=== PATIENT | female | born 1980 | race Hispanic/Latino ===

== ENCOUNTER 2017-12-19 09:34 | Outpatient (CLI) | payer MEDICAID ==
--- NOTE | 2017-12-19 12:04 | Ultrasound Report ---
ULTRASOUND PELVIC COMPLETE ULTRASOUND TRANSVAGINAL HISTORY: Ovarian cyst. COMPARISON: 08/25/17. TECHNIQUE: Transabdominal and transvaginal ultrasound with color doppler interrogation. FINDINGS: Uterus: The uterus is anteverted. The uterus measures 10.5 x 4.5 x 5.7 cm. No large uterine fibroids. Nabothian cysts in the cervix are unchanged. Endometrium: 9.7 mm. No fluid collection or mass. Right ovary: 3.1 x 2.7 x 2.7 cm. A 3.1 cm cyst in the right ovary has decreased from 4.5 cm. Left ovary: 5.5 x 3.7 x 5.6 cm. A 4.4 cm cyst in the left ovary has increased from 3.2 cm. No pelvic fluid or mass is identified. Normal color doppler interrogation. IMPRESSION: Bilateral ovarian cysts as described above. Nabothian cysts in the cervix.
--- NOTE | 2017-12-19 15:26 | Ultrasound Report ---
BILATERAL BREAST ULTRASOUND: 12/19/17 09:34:00 CLINICAL: Chronic bilateral clear nipple discharge. Negative bilateral mammogram and bilateral breast ultrasound at [facility] 07/14/17. I have a report of no images. COMPARISON: None FINDINGS: Ultrasound of both breasts(including all four quadrants and the retroareolar area of each breast) was performed. No solid mass or shadowing. No ductal dilatation. No intraductal mass lesion identified. A smooth oval anechoic left benign cyst at 2 o'clock 8 cm from the nipple measures 8 x 3 x 6 mm and a complex cystic lesion at 6 o'clock 3 cm from the nipple measures 8 x 4 x 3 mm. A complex cyst of the right breast at 2 o'clock 7 cm from the nipple measures 1.8 x 0.5 x 1.0 cm and contains at least one thin septation. A benign cyst at 7 o'clock measures 7 x 2 x 7 mm. IMPRESSION: Bilateral benign cysts and no suspicious finding. Consider bilateral breast MRI without and with contrast for further workup of bilateral nipple discharge. BI-RADS 2 - - Benign
== END 2017-12-19 09:35 | disposition home or self-care (01) ==
LOC: US 09:34
PROVIDERS: ATTEND Obstetrics & Gynecology
DX: N60.02 Solitary cyst of left breast (principal); N60.01 Solitary cyst of right breast; N83.201 Unspecified ovarian cyst, right side; N83.202 Unspecified ovarian cyst, left side; N88.8 Other specified noninflammatory disorders of cervix uteri
CPT/HCPCS: 76830; 76856

== ENCOUNTER 2018-04-19 17:29 | Emergency (ER) | payer MEDICAID, OTHER ==
[2018-04-19] MEDS ORDERED: NACL 0.9% 1000 ML 1,000 ML IV ONE (17:40)
[2018-04-19 18:45] LABS: Basophils % (Auto) 0.4 % (0.0-1.8); Eosinophils # (Auto) 0.1 K/mm3 (0.0-0.4); Eosinophils % (Auto) 0.9 % (0.0-4.3); Hematocrit 42.3 % (30.3-42.9); Hemoglobin 14.3 gm/dl (10.1-14.3); Lymphocytes # (Auto) 1.4 K/mm3 (1.2-5.4); Lymphocytes % (Auto) 20.5 % (13.4-35.0); Mean Corpuscular HGB Conc 34 % (30-34); Mean Corpuscular Hemoglobin 29 pg (28-32); Mean Corpuscular Volume 86 fl (79-97); Monocytes # (Auto) 0.6 K/mm3 (0.0-0.8); Monocytes % (Auto) 8.8 % (0.0-7.3); Platelet Count 237 K/mm3 (140-440); Red Blood Count 4.95 M/mm3 (3.65-5.03)
[2018-04-19 18:59] LABS: Alanine Aminotransferase 31 units/L (7-56); Albumin 4.5 g/dL (3.9-5); BUN/Creatinine Ratio 15; Blood Urea Nitrogen 9 mg/dL (7-17); Calcium 9.2 mg/dL (8.4-10.2); Hemolysis Index 9; Lipase 20 units/L (13-60)
--- NOTE | 2018-04-19 20:57 | Emergency Department Report ---
HPI - General Chief Complaint: Nausea/Vomiting/Diarrhea Time Seen by Provider: 04/19/18 19:57 - HPI HPI: 38-year-old female presents to the emergency department, sent in by her PCP Dr. Omega Doyle, for a 5 day history of copious diarrhea. It is now associated with some generalized abdominal pain that she says is currently 8 out of 10 in intensity. She denies any fever, nausea, vomiting. She's been taking Imodium and Pepto-Bismol without any relief. She has a history of a previous brain tumor and hypertension. No recent travel or sick contacts at home. ED Past Medical Hx - Past Medical History Hx Hypertension: Yes Additional medical history: brain tumor. anxiety. depression - Surgical History Hx Appendectomy: Yes Additional Surgical History: shunt placement and removal. x 2. tonsillectomy - Social History Smoking Status: Never Smoker Substance Use Type: None - Medications Home Medications: Home Medications Medication Instructions Recorded Confirmed Last Taken Type ALPRAZolam [Xanax TAB] 1 mg PO TID PRN 06/09/15 06/09/15 06/09/15 History Carisoprodol [Soma] 350 mg PO BID 06/09/15 06/09/15 06/09/15 History Hydrochlorothiazide [HCTZ] 25 mg PO BID 06/09/15 06/09/15 06/09/15 History Ondansetron [Zofran ODT TAB] 4 mg PO Q8HR #15 tab.rapdis 06/09/15 Unknown Rx Promethazine [Phenergan TAB] 25 mg PO Q6HR PRN 06/09/15 06/09/15 06/09/15 History oxyCODONE [Roxicodone TAB] 10 mg PO TID PRN 06/09/15 06/09/15 06/09/15 History Ciprofloxacin HCl [Cipro] 500 mg PO BID #14 tablet 04/20/18 Unknown Rx metroNIDAZOLE [Flagyl] 500 mg PO Q8HR #24 tablet 04/20/18 Unknown Rx ED Review of Systems ROS: Stated complaint: NVD Other details as noted in HPI Comment: All other systems reviewed and negative Constitutional: denies: chills, fever Eyes: denies: eye pain, eye discharge, vision change ENT: denies: ear pain, throat pain Respiratory: denies: cough, shortness of breath, wheezing Cardiovascular: denies: chest pain, palpitations Gastrointestinal: abdominal pain, diarrhea Genitourinary: denies: urgency, dysuria, discharge Musculoskeletal: denies: back pain, joint swelling, arthralgia Skin: denies: rash, lesions Neurological: denies: headache, weakness, paresthesias Physical Exam - Physical Exam Vital Signs: Vital Signs 04/19/18 04/19/18 17:37 20:34 Temperature 97.4 F L 98.3 F Pulse Rate 81 74 Respiratory 18 Rate Blood Pressure 141/78 Blood Pressure 117/70 [Left] O2 Sat by Pulse 99 99 Oximetry Physical Exam: GENERAL: The patient is well-developed well-nourished. HENT: Normocephalic. Atraumatic. Patient has moist mucous membranes. EYES: Extraocular motions are intact. Pupils equal reactive to light bilaterally. NECK: Supple. Trachea is midline. CHEST/LUNGS: Clear to auscultation. There is no respiratory distress noted. HEART/CARDIOVASCULAR: Regular. There is no tachycardia. There is no murmur. ABDOMEN: Abdomen is soft. There is some generalized tenderness to palpation of the abdomen. No guarding. Patient has slightly hyperactive bowel sounds. SKIN: There is no rash. There is no edema. There is no diaphoresis. NEURO: The patient is awake, alert, and oriented. The patient is cooperative. The patient has no focal neurologic deficits. The patient has normal speech and gait. MUSCULOSKELETAL: There is no tenderness or deformity. There is no limitation range of motion. There is no evidence of acute injury. ED Course Vital Signs 04/19/18 04/19/18 17:37 20:34 Temperature 97.4 F L 98.3 F Pulse Rate 81 74 Respiratory 18 Rate Blood Pressure 141/78 Blood Pressure 117/70 [Left] O2 Sat by Pulse 99 99 Oximetry ED Medical Decision Making - Lab Data Result diagrams: 04/19/18 18:32 04/19/18 18:32 - Radiology Data Radiology results: report reviewed EXAM: CT ABDOMEN PELVIS WO CON HISTORY: Abd pain, diarrhea COMPARISON: None available. TECHNIQUE: Contiguous axial images were obtained. Additional sagittal and coronal reformatted images were obtained. FINDINGS: Lung bases are clear. No calcified gallstones. Liver measures 22 centimeters. Spleen measures 15 centimeters. Mild fatty infiltration of the liver. Pancreas and adrenal glands are grossly unremarkable. No nephrolithiasis or hydronephrosis. Aorta and IVC normal in caliber. No distal ureteral or urinary bladder calculi. Uterus and left ovary grossly unremarkable. Simple appearing right ovarian cystic structure measuring 2.3 x 2.7 centimeters likely physiologic given the patient's age. No free fluid or lymphadenopathy in the pelvic cavity. Prior appendectomy. There few reactive lymph nodes adjacent to the cecum and ascending colon. Wall thickening of the rectosigmoid colon concerning for segmental colitis. Mild adjacent fat stranding. Remaining bowel loops normal in caliber. No bowel obstruction. Mild degenerative changes of the lumbar spine. Bilateral pars defects at the L5 level. Bony pelvis is grossly intact.. IMPRESSION: Findings concerning for mild colitis involving the rectosigmoid colon. Remaining bowel loops normal in caliber. Prior appendectomy. Moderate enlargement of the spleen. Mild fatty infiltration of the liver. Transcribed By: VALERIO Dictated By: MADDY CORDOVA MD Electronically Authenticated By: MADDY CORDOVA MD Signed Date/Time: 04/20/18 0036 - Medical Decision Making Patient presents with a five-day history of diarrhea and some abdominal discomfort. Vital signs stable throughout her ED course including being afebrile. The labs were unremarkable including no significant leukocytosis, normal belly labs. Urinalysis showed trace ketones and there might be some level of dehydration. She was given IV fluid resuscitation, a dose of Zofran for some nausea. A stool culture and C. difficile assay have been sent. A white blood cell test of the stool came back negative. Patient was sent in by the PCP for evaluation that would include checking for C. difficile. This test would not be back for 2 or [address] scan of the abdomen pelvis was done that shows some signs of rectosigmoid colitis and fatty infiltration of the liver but otherwise no significant or acute process. Patient says she is feeling improved and asking for discharge home. She will be treated with Cipro and Flagyl, which would cover her for C. difficile if it was positive. She will return to the emergency Department with any worsening of her symptoms or any acute distress. Otherwise she has been encouraged to follow up with her PCP and was given a referral for gastroenterology. She understands and agrees to the plan. - Differential Diagnosis colitis, diverticulitis, gastroenteritis, food poisoning, C. difficile Critical Care Time: No Critical care attestation.: If time is entered above; I have spent that time in minutes in the direct care of this critically ill patient, excluding procedure time. ED Disposition Clinical Impression: Dehydration Diarrhea Qualifiers: Diarrhea type: unspecified type Qualified Code(s): R19.7 - Diarrhea, unspecified Abdominal pain Qualifiers: Abdominal location: generalized Qualified Code(s): R10.84 - Generalized abdominal pain Disposition: TO HOME OR SELFCARE Is pt being admited?: No Condition: Stable Instructions: Acute Diarrhea (ED), Abdominal Pain (ED) Additional Instructions: Increase your oral rehydration. Follow up with your primary care physician in the next few days. I have given her a referral for a local tip printer, Dr. Nelson, to follow up regarding your abdominal pain and diarrhea. Take the antibiotics as prescribed. One of the antibiotics, Flagyl/metronidazole, has a profound and terrible reaction if mixed with alcohol of any quantity and will cause you to have severe vomiting and discomfort. Return to the emergency Department with any worsening of your symptoms or with any acute distress. Prescriptions: Ciprofloxacin HCl [Cipro] 500 mg PO BID #14 tablet metroNIDAZOLE [Flagyl] 500 mg PO Q8HR #24 tablet Referrals: OMEGA DOYLE MD [Staff Physician] - 3-5 Days MISSY NELSON MD [Staff Physician] - 3-5 Days Time of Disposition:
[2018-04-19 21:11] LABS: HCG Qualitative,Urine Negative (Negative)
[2018-04-19 21:13] LABS: Amorphous Crystals,Urine 3+; Bilirubin,Urine NEG (Negative); Blood,Urine NEG (Negative); Color,Urine Yellow (Yellow); Mucus,Urine 3+ /HPF; Protein,Urine <15 mg/dL mg/dL (Negative); Urobilinogen,Urine < 2.0 mg/dL (<2.0); WBC,Urine < 1.0 /HPF (0.0-6.0)
[2018-04-19] MEDS ORDERED: NACL 0.9% 1000 ML 1,000 ML ONE (22:21)
[2018-04-19] MEDS ORDERED: ZOFRAN ONE (22:39)
[2018-04-19] MEDS ORDERED: ZOFRAN IV ONE (22:40)
--- NOTE | 2018-04-20 00:41 | Cat Scan Report ---
FINAL REPORT EXAM: CT ABDOMEN PELVIS WO CON HISTORY: Abd pain, diarrhea COMPARISON: None available. TECHNIQUE: Contiguous axial images were obtained. Additional sagittal and coronal reformatted images were obtained. FINDINGS: Lung bases are clear. No calcified gallstones. Liver measures 22 centimeters. Spleen measures 15 centimeters. Mild fatty infiltration of the liver. Pancreas and adrenal glands are grossly unremarkable. No nephrolithiasis or hydronephrosis. Aorta and IVC normal in caliber. No distal ureteral or urinary bladder calculi. Uterus and left ovary grossly unremarkable. Simple appearing right ovarian cystic structure measuring 2.3 x 2.7 centimeters likely physiologic given the patient's age. No free fluid or lymphadenopathy in the pelvic cavity. Prior appendectomy. There few reactive lymph nodes adjacent to the cecum and ascending colon. Wall thickening of the rectosigmoid colon concerning for segmental colitis. Mild adjacent fat stranding. Remaining bowel loops normal in caliber. No bowel obstruction. Mild degenerative changes of the lumbar spine. Bilateral pars defects at the L5 level. Bony pelvis is grossly intact.. IMPRESSION: Findings concerning for mild colitis involving the rectosigmoid colon. Remaining bowel loops normal in caliber. Prior appendectomy. Moderate enlargement of the spleen. Mild fatty infiltration of the liver.
[2018-04-20] MEDS ORDERED: LEVAQUIN 750MG/150ML 750 MG/150 ML BAG IV ONE (00:58)
[2018-04-20] MEDS ORDERED: FLAGYL PO ONE (00:58)
[2018-04-20] MEDS ORDERED: LEVAQUIN PO ONE (01:18)
[2018-04-20 02:01] VITALS: BP 115/67
== END 2018-04-20 01:45 | disposition home or self-care (01) ==
LOC: ED 17:29
DX: R10.84 Generalized abdominal pain (principal); E86.0 Dehydration; R19.7 Diarrhea, unspecified; I10 Essential (primary) hypertension
CPT/HCPCS: 36415; 74176; 80053; 81001; 81025; 83690; 85007; 85025; 87045; 87324; 96361; 96374; 99284; J2405; J7030

== ENCOUNTER 2018-11-13 08:08 | Outpatient (CLI) | payer MEDICAID ==
--- NOTE | 2018-11-13 09:21 | Ultrasound Report ---
Bilateral breast sonogram with attention to subareolar area right and left breast. Findings: There is ill-defined dilated duct with focal area of echogenicity suggestive of intraductal polyp at subareolar area left breast. There is dilated duct with tiny suspected intraductal polyp right breast subareolar area. Benign cyst left breast 9:00 position 4 cm from nipple. Impression: Dilated duct with intraluminal suspected mass subareolar area and right and left breast. Recommend ductogram for further evaluation. BI-RADS CATEGORY: 4 = Suspicious ACR BI-RADS MAMMOGRAPHIC CODES: 0 = Needs additional imaging evaluation; 1 = Negative; 2 = Benign; 3 = Probably benign; 4 = Suspicious; 5 = Malignant; 6 = Known biopsy-proven malignancy COMMENT: 1. Dense breast tissue, i.e., adenosis, fibrocystic changes, etc., may obscure an underlying neoplasm. 2. Approximately 10% of cancers are not detected with mammography. 3. A negative mammography report should not delay biopsy if a clinically suspicious mass is present.
== END 2018-11-13 08:09 | disposition home or self-care (01) ==
LOC: SPVWC 08:08
PROVIDERS: ATTEND Surgery
DX: N60.32 Fibrosclerosis of left breast (principal); N60.31 Fibrosclerosis of right breast; I10 Essential (primary) hypertension

== ENCOUNTER 2019-03-18 14:10 | Emergency (ER) | payer MEDICAID ==
--- NOTE | 2019-03-18 14:23 | Emergency Department Report ---
Blank Doc - Documentation Documentation: This is a 39-year-old female that presents wit right thumb laceration that occ urred last night around 7 PM. This initial assessment/diagnostic orders/clinical plan/treatment(s) is/are subject to change based on patient's health status, clinical progression and re- assessment by fellow clinical providers in the ED. Further treatment and workup at subsequent clinical providers discretion. Patient/guardians urged not to elope from the ED as their condition may be serious if not clinically assessed and managed. Initial orders include: 1- Patient sent to [facility] for further evaluation and treatment
[2019-03-18 14:25] VITALS: BP 137/74
--- NOTE | 2019-03-18 17:52 | Emergency Department Report ---
ED Laceration HPI - HPI Chief Complaint: Wound/Laceration Stated Complaint: CUT ON R THUMB Time Seen by Provider: 03/18/19 14:22 Occurred When: Yesterday Location: Upper Extremity (right hand) Severity: mild Tetanus Status: Not up to Date Laceration Symptoms: Yes Pain, No Foreign Body Sensation, No Numbness, No Weakness Other History: This is a 39-year-old female who presents to the emergency room with a laceration to right thumb. 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 She called EMS and states they would not escort her to the emergency room because it was a superfi cial wound. She was told to apply triple antibiotic ointment. Patient denies swelling, bleeding, numbness or tingling, paresthesia, or weakness. ED Review of Systems ROS: Stated complaint: CUT ON R THUMB Other details as noted in HPI Constitutional: denies: chills, fever Respiratory: denies: cough, shortness of breath, wheezing Cardiovascular: denies: chest pain, palpitations Gastrointestinal: denies: abdominal pain, nausea, diarrhea Skin: lesions. denies: rash Neurological: denies: headache, weakness, paresthesias Psychiatric: denies: anxiety, depression ED Past Medical Hx - Past Medical History Previous Medical History?: Yes Hx Hypertension: Yes Hx Arthritis: Yes Additional medical history: brain tumor. anxiety. depression - Surgical History Past Surgical History?: Yes Hx Appendectomy: Yes Additional Surgical History: shunt placement and removal. x 2. tonsillectomy - Social History Smoking Status: Never Smoker Substance Use Type: None - Medications Home Medications: Home Medications Medication Instructions Recorded Confirmed Last Taken Type ALPRAZolam [Xanax TAB] 1 mg PO TID PRN 06/09/15 06/09/15 06/09/15 History Carisoprodol [Soma] 350 mg PO BID 06/09/15 06/09/15 06/09/15 History Ondansetron [Zofran ODT TAB] 4 mg PO Q8HR #15 tab.rapdis 06/09/15 Unknown Rx Promethazine [Phenergan TAB] 25 mg PO Q6HR PRN 06/09/15 06/09/15 06/09/15 History hydroCHLOROthiazide [HCTZ] 25 mg PO BID 06/09/15 06/09/15 06/09/15 History oxyCODONE [Roxicodone TAB] 10 mg PO TID PRN 06/09/15 06/09/15 06/09/15 History Ciprofloxacin HCl [Cipro] 500 mg PO BID #14 tablet 04/20/18 Unknown Rx metroNIDAZOLE [Flagyl] 500 mg PO Q8HR #24 tablet 04/20/18 Unknown Rx Laceration Physical Exam - Exam General: Vital signs noted. No distress. Alert and acting appropriately. Wound Length (cm): 1 Laceration Location: Upper Extremity Full Body Front + Back: 1 - 1 cm laceration into epidermis, no bleeding, nontender, edges well approximated. Laceration Exam: Yes Normal Distal CMS, No Foreign Body, No Exposed Tendon, Vessel, or Nerve, No Tendon Injury ED Course Vital Signs 03/18/19 14:23 Temperature 98.7 F Pulse Rate 86 Respiratory 16 Rate Blood Pressure 137/74 O2 Sat by Pulse 96 Oximetry ED Medical Decision Making - Medical Decision Making Patient was examined by me. Vitals are normal and patient is in no acute distress. Laceration does not require sutures and beyond time of closure. Patient given boostrix vaccine while in ER. She elected to apply triple antibiotic ointment twice a day. Plan discussed with patient to discharge home and treat outpatient. He agrees with ER plan. Patient discharged home in stable condition. Follow up with PCP in 2-3 days. Critical care attestation.: If time is entered above; I have spent that time in minutes in the direct care of this critically ill patient, excluding procedure time. ED Disposition Clinical Impression: Laceration of finger Qualifiers: Encounter type: initial encounter Finger: thumb Damage to nail status: without damage Foreign body presence: without foreign body Laterality: right Qualified Code(s): S61.011A - Laceration without foreign body of right thumb without damage to nail, initial encounter Disposition: TO HOME OR SELFCARE Is pt being admited?: No Does the pt Need Aspirin: No Condition: Stable Instructions: Laceration (ED), Acute Wound Care (ED) Additional Instructions: Keep wound dry and clean for 48 hours. Avoid putting to much tension on wound site. Prop arm up on pillows to decrease swelling. Follow up with Primary Care Provider in 2-3 days. Return to ER if red, swollen, foul discharge, or fever. Referrals: RUPERTO LEES MD [Primary Care Provider] - 3-5 Days [facility] [Outside] - 3-5 Days [facility] [Outside] - 3-5 Days Forms: Work/School Release Form(ED), Accompanied Note Time of Disposition: 17:56
[2019-03-18] MEDS ORDERED: BOOSTRIX IM ONE (17:53)
== END 2019-03-18 18:12 | disposition home or self-care (01) ==
LOC: ED 14:10
DX: S61.011A Laceration without foreign body of right thumb without damage to nail, initial encounter (principal); I10 Essential (primary) hypertension; M19.90 Unspecified osteoarthritis, unspecified site; Z90.49 Acquired absence of other specified parts of digestive tract; Z90.89 Acquired absence of other organs; Z88.0 Allergy status to penicillin; Z88.1 Allergy status to other antibiotic agents; Y28.8XXA Contact with other sharp object, undetermined intent, initial encounter; Y93.89 Activity, other specified; Y92.89 Other specified places as the place of occurrence of the external cause; Y99.8 Other external cause status
CPT/HCPCS: 90471; 90715

== ENCOUNTER 2019-03-20 13:36 | Emergency (ER) | payer MEDICAID ==
--- NOTE | 2019-03-20 14:26 | Emergency Department Report ---
- General Chief complaint: Skin/Abscess/Foreign Body Stated complaint: ALLERGIC REACTION TO TETNANUS SHOT Time Seen by Provider: 03/20/19 14:14 Source: patient Mode of arrival: Ambulatory Limitations: No Limitations - History of Present Illness Initial comments: pt is a 39 yo female who presents to the ED s/p tetanus immunization on 03/18/19. 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 she was given a tetanus immunization in the left arm because she states it had been 17 years since she had one. She states that yest erday she began having some redness and increased warmth to the area of the tetanus immunization. she denies any drainage. she denies any rash, swelling, facial swelling, throat closing sensation, or any other symptoms. pt states she is allergic to penicillin and vancomycin. - Related Data Home Medications Medication Instructions Recorded Confirmed Last Taken ALPRAZolam [Xanax TAB] 1 mg PO TID PRN 06/09/15 06/09/15 06/09/15 Carisoprodol [Soma] 350 mg PO BID 06/09/15 06/09/15 06/09/15 Promethazine [Phenergan TAB] 25 mg PO Q6HR PRN 06/09/15 06/09/15 06/09/15 hydroCHLOROthiazide [HCTZ] 25 mg PO BID 06/09/15 06/09/15 06/09/15 oxyCODONE [Roxicodone TAB] 10 mg PO TID PRN 06/09/15 06/09/15 06/09/15 Previous Rx's Medication Instructions Recorded Last Taken Type Ondansetron [Zofran ODT TAB] 4 mg PO Q8HR #15 tab.rapdis 06/09/15 Unknown Rx Ciprofloxacin HCl [Cipro] 500 mg PO BID #14 tablet 04/20/18 Unknown Rx metroNIDAZOLE [Flagyl] 500 mg PO Q8HR #24 tablet 04/20/18 Unknown Rx Sulfamethoxazole/Trimethoprim 1 each PO BID 7 Days #14 tablet 03/20/19 Unknown Rx [Bactrim DS TAB] Allergies Allergy/AdvReac Type Severity Reaction Status Date / Time penicillin Allergy Swelling Verified 03/20/19 13:39 vancomycin Allergy Swelling Verified 03/20/19 13:39 Abscess Boil HPI - HPI Chief Complaint: Skin/Abscess/Foreign Body Stated Complaint: ALLERGIC REACTION TO TETNANUS SHOT Time Seen by Provider: 03/20/19 14:14 Home Medications: Home Medications Medication Instructions Recorded Confirmed Last Taken ALPRAZolam [Xanax TAB] 1 mg PO TID PRN 06/09/15 06/09/15 06/09/15 Carisoprodol [Soma] 350 mg PO BID 06/09/15 06/09/15 06/09/15 Promethazine [Phenergan TAB] 25 mg PO Q6HR PRN 06/09/15 06/09/15 06/09/15 hydroCHLOROthiazide [HCTZ] 25 mg PO BID 06/09/15 06/09/15 06/09/15 oxyCODONE [Roxicodone TAB] 10 mg PO TID PRN 06/09/15 06/09/15 06/09/15 Previous Rx's Medication Instructions Recorded Last Taken Type Ondansetron [Zofran ODT TAB] 4 mg PO Q8HR #15 tab.rapdis 06/09/15 Unknown Rx Ciprofloxacin HCl [Cipro] 500 mg PO BID #14 tablet 04/20/18 Unknown Rx metroNIDAZOLE [Flagyl] 500 mg PO Q8HR #24 tablet 04/20/18 Unknown Rx Sulfamethoxazole/Trimethoprim 1 each PO BID 7 Days #14 tablet 03/20/19 Unknown Rx [Bactrim DS TAB] Allergies/Adverse Reactions: Allergies Allergy/AdvReac Type Severity Reaction Status Date / Time penicillin Allergy Swelling Verified 03/20/19 13:39 vancomycin Allergy Swelling Verified 03/20/19 13:39 ED Review of Systems ROS: Stated complaint: ALLERGIC REACTION TO TETNANUS SHOT Other details as noted in HPI Comment: All other systems reviewed and negative ED Past Medical Hx - Past Medical History Hx Hypertension: Yes Hx Arthritis: Yes Additional medical history: brain tumor. anxiety. depression - Surgical History Hx Appendectomy: Yes Additional Surgical History: shunt placement and removal. x 2. tonsillectomy - Social History Smoking Status: Never Smoker Substance Use Type: None - Medications Home Medications: Home Medications Medication Instructions Recorded Confirmed Last Taken Type ALPRAZolam [Xanax TAB] 1 mg PO TID PRN 06/09/15 06/09/15 06/09/15 History Carisoprodol [Soma] 350 mg PO BID 06/09/15 06/09/1506/09/15 History Ondansetron [Zofran ODT TAB] 4 mg PO Q8HR #15 tab.rapdis 06/09/15 Unknown Rx Promethazine [Phenergan TAB] 25 mg PO Q6HR PRN 06/09/15 06/09/15 06/09/15 History hydroCHLOROthiazide [HCTZ] 25 mg PO BID 06/09/15 06/09/15 06/09/15 History oxyCODONE [Roxicodone TAB] 10 mg PO TID PRN 06/09/15 06/09/15 06/09/15 History Ciprofloxacin HCl [Cipro] 500 mg PO BID #14 tablet 04/20/18 Unknown Rx metroNIDAZOLE [Flagyl] 500 mg PO Q8HR #24 tablet 04/20/18 Unknown Rx Sulfamethoxazole/Trimethoprim 1 each PO BID 7 Days #14 tablet 03/20/19 Unknown Rx [Bactrim DS TAB] ED Physical Exam - General Limitations: No Limitations General appearance: alert, in no apparent distress - Head Head exam: Present: atraumatic, normocephalic - Respiratory Respiratory exam: Present: normal lung sounds bilaterally. Absent: respiratory distress, wheezes, rales, rhonchi, stridor, chest wall tenderness, accessory m uscle use, decreased breath sounds, prolonged expiratory - Cardiovascular Cardiovascular Exam: Present: regular rate, normal rhythm, normal heart sounds. Absent: systolic murmur, diastolic murmur, rubs, gallop - Neurological Exam Neurological exam: Present: alert, oriented X3 - Psychiatric Psychiatric exam: Present: normal affect, normal mood - Skin Skin exam: Present: warm, dry, intact, other (small 2 cm area of induration and erythema to the left upper extremity, no drainage, no fluctuance, FROM of the LUE without difficulty, small superificial laceration to the right thumb is well healed, no drainage, no erythema, no increased warmth, FROM of the right finger, pt has good radial pulses bilaterally) ED Course Vital Signs 03/20/19 15:10 Pulse Rate 73 Respiratory 16 Rate Blood Pressure 141/84 [Left] O2 Sat by Pulse 97 Oximetry ED Medical Decision Making - Medical Decision Making pt is a 39 yo female who presents to the ED s/p tetanus immunization on 03/18/19. 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 she was given a tetanus immunization in the left arm because she states it had been 17 years since she had one. She states that yesterday she began having some redness and increased warmth to the area of the tetanus immunization. she denies any drainage. she denies any rash, swelling, facial swelling, throat closing sensation, or any other symptoms. pt states she is allergic to penicillin and vancomycin. pt has small 2 cm area of induration and erythema to the left upper arm, no fluctuance, no drainage. pt asked to have a jayne placed around the area, used a skin marker to draw a [place] around the erythema. pt given bactrim. discussed to take as prescribed. follow up with a PCP in the next 3 days for reevaluation. pt given list of community resources. return to the emergency room for any new or worsening symptoms or if symptoms not improving. pt asked for handout on tdap immunization, printed in patients discharge packet. Critical care attestation.: If time is entered above; I have spent that time in minutes in the direct care of this critically ill patient, excluding procedure time. ED Disposition Clinical Impression: Cellulitis Qualifiers: Site of cellulitis: extremity Site of cellulitis of extremity: upper extremity Laterality: left Qualified Code(s): L03.114 - Cellulitis of left upper limb Disposition: DC- TO HOME OR SELFCARE Is pt being admited?: No Does the pt Need Aspirin: No Condition: Stable Instructions: Cellulitis (ED), Diphtheria Tetanus and Pertussis Vaccination (ED) Additional Instructions: Please take medication as prescribed. Please follow up with a primary care doctor in the next 3 days for reevaluation. return to the emergency room for any new or worsening symptoms. may also use triple antibiotic ointment on the area. Prescriptions: Sulfamethoxazole/Trimethoprim [Bactrim DS TAB] 1 each PO BID 7 Days #14 tablet Referrals: [facility] [Provider Group] - 2-3 Days [facility] [Outside] - 2-3 Days Forms: Accompanied Note, Work/School Release Form(ED) Time of Disposition: 14:32 Print Language: MOHAWK
[2019-03-20 15:12] VITALS: BP 141/84
== END 2019-03-20 15:10 | disposition home or self-care (01) ==
LOC: ED 13:36
DX: L03.114 Cellulitis of left upper limb (principal); I10 Essential (primary) hypertension; M19.90 Unspecified osteoarthritis, unspecified site
CPT/HCPCS: 99282

== ENCOUNTER 2019-05-06 23:29 | Emergency (ER) | payer MEDICAID ==
[2019-05-07] MEDS ORDERED: SOLU-Medrol IV ONE (00:21)
[2019-05-07] MEDS ORDERED: BENADRYL IV ONE (00:22)
--- NOTE | 2019-05-07 00:27 | Emergency Department Report ---
ED Shortness of Breath HPI - General Chief Complaint: Dyspnea/Respdistress Stated Complaint: SARA Time Seen by Provider: 05/07/19 00:16 Source: patient, EMS Mode of arrival: Stretcher Limitations: No Limitations - History of Present Illness Initial Comments: Patient is 39 years old female with history of asthma and cat allergy. Patient stated that she went to her friend's house and there was a cat there. Patient stated that she started having some shortness of breath and change in her voice. Patient stated that she did not have her EpiPen with her. Patient received albuterol that helped with her shortness of breath but the change of the voice is still there. Patient denied any fever or chills. MD Complaint: shortness of breath - Related Data Home Medications Medication Instructions Recorded Confirmed Last Taken ALPRAZolam [Xanax TAB] 1 mg PO TID PRN 06/09/15 06/09/15 06/09/15 Carisoprodol [Soma] 350 mg PO BID 06/09/15 06/09/15 06/09/15 Promethazine [Phenergan TAB] 25 mg PO Q6HR PRN 06/09/15 06/09/15 06/09/15 hydroCHLOROthiazide [HCTZ] 25 mg PO BID 06/09/15 06/09/15 06/09/15 oxyCODONE [Roxicodone TAB] 10 mg PO TID PRN 06/09/15 06/09/15 06/09/15 Previous Rx's Medication Instructions Recorded Last Taken Type Ondansetron [Zofran ODT TAB] 4 mg PO Q8HR #15 tab.rapdis 06/09/15 Unknown Rx Ciprofloxacin HCl [Cipro] 500 mg PO BID #14 tablet 04/20/18 Unknown Rx metroNIDAZOLE [Flagyl] 500 mg PO Q8HR #24 tablet 04/20/18 Unknown Rx Sulfamethoxazole/Trimethoprim 1 each PO BID 7 Days #14 tablet 03/20/19 Unknown Rx [Bactrim DS TAB] Allergies Allergy/AdvReac Type Severity Reaction Status Date / Time penicillin Allergy Swelling Verified 03/20/19 13:39 vancomycin Allergy Swelling Verified 03/20/19 13:39 ED Review of Systems ROS: Stated complaint: SARA Other details as noted in HPI Comment: All other systems reviewed and negative Constitutional: denies: chills, fever ENT: denies: throat pain Respiratory: shortness of breath Cardiovascular: denies: chest pain, palpitations Gastrointestinal: denies: abdominal pain, nausea, vomiting Musculoskeletal: denies: back pain Neurological: denies: headache, weakness ED Past Medical Hx - Past Medical History Hx Hypertension: Yes Hx Arthritis: Yes Hx Asthma: Yes Additional medical history: brain tumor. anxiety. depression - Surgical History Hx Appendectomy: Yes Additional Surgical History: shunt placement and removal. x 2. tonsillectomy - Social History Smoking Status: Never Smoker Substance Use Type: None - Medications Home Medications: Home Medications Medication Instructions Recorded Confirmed Last Taken Type ALPRAZolam [Xanax TAB] 1 mg PO TID PRN 06/09/15 06/09/15 06/09/15 History Carisoprodol [Soma] 350 mg PO BID 06/09/15 06/09/15 06/09/15 History Ondansetron [Zofran ODT TAB] 4 mg PO Q8HR #15 tab.rapdis 06/09/15 Unknown Rx Promethazine [Phenergan TAB] 25 mg PO Q6HR PRN 06/09/15 06/09/15 06/09/15 History hydroCHLOROthiazide [HCTZ] 25 mg PO BID 06/09/15 06/09/15 06/09/15 History oxyCODONE [Roxicodone TAB] 10 mg PO TID PRN 06/09/15 06/09/15 06/09/15 History Ciprofloxacin HCl [Cipro] 500 mg PO BID #14 tablet 04/20/18 Unknown Rx metroNIDAZOLE [Flagyl] 500 mg PO Q8HR #24 tablet 04/20/18 Unknown Rx Sulfamethoxazole/Trimethoprim 1 each PO BID 7 Days #14 tablet 03/20/19 Unknown Rx [Bactrim DS TAB] ED Physical Exam - General Limitations: No Limitations General appearance: alert, in no apparent distress - Head Head exam: Present: atraumatic, normocephalic, normal inspection - Eye Eye exam: Present: normal appearance - ENT ENT exam: Present: normal exam, normal orophraynx, mucous membranes moist - Neck Neck exam: Present: normal inspection, full ROM. Absent: tenderness, meningismus, lymphadenopathy, thyromegaly - Respiratory Respiratory exam: Present: normal lung sounds bilaterally. Absent: respiratory distress, wheezes, rales, rhonchi, stridor, chest wall tenderness, accessory muscle use, decreased breath sounds, prolonged expiratory - Cardiovascular Cardiovascular Exam: Present: regular rate, normal rhythm, normal heart sounds - GI/Abdominal GI/Abdominal exam: Present: soft, normal bowel sounds. Absent: distended, tenderness, guarding, rebound, rigid, pulsatile mass, hernia - Extremities Exam Extremities exam: Present: normal inspection, full ROM, normal capillary refill - Back Exam Back exam: Present: normal inspection, full ROM - Neurological Exam Neurological exam: Present: alert, oriented X3, CN II-XII intact, normal gait - Skin Skin exam: Present: warm, intact, normal color ED Course Vital Signs 05/06/19 05/06/19 05/06/19 23:37 23:41 23:45 Temperature 97.8 F Pulse Rate 59 L 126 H Respiratory 16 10 L Rate Blood Pressure 125/70 O2 Sat by Pulse 100 Oximetry 05/07/19 05/07/19 05/07/19 00:13 00:15 00:31 Temperature Pulse Rate 65 57 L Respiratory 19 18 Rate Blood Pressure 125/70 118/76 108/52 O2 Sat by Pulse 99 99 98 Oximetry 05/07/19 00:44 Temperature Pulse Rate Respiratory 22 Rate Blood Pressure O2 Sat by Pulse Oximetry ED Medical Decision Making - Radiology Data Radiology results: report reviewed Chest x-ray is unremarkable. - Medical Decision Making Patient is 39 years old female with history of asthma and cat allergy. Patient stated that she went to her friend's house and there was a cat there. Patient stated that she started having some shortness of breath and change in her voice. Patient stated that she did not have her EpiPen with her. Patient received albuterol that helped with her shortness of breath but the change of the voice is still there. Patient denied any fever or chills. Patient stated that she is doing much better. Patient given a prescription for prednisone and EpiPen and advised to follow UP primary care physician in the next 2-3 days and to return to the ER if symptoms are not improved. Critical care attestation.: If time is entered above; I have spent that time in minutes in the direct care of this critically ill patient, excluding procedure time. ED Disposition Clinical Impression: Allergic reaction, Asthma exacerbation Disposition: - TO HOME OR SELFCARE Is pt being admited?: No Condition: Stable Instructions: Asthma (ED) Referrals: [facility] [Provider Group] - 3-5 Days
--- NOTE | 2019-05-07 00:41 | XRay Report ---
CHEST 1 VIEW 05/07/2019 12:12 AM INDICATION / CLINICAL INFORMATION: SOB. COMPARISON: None available. FINDINGS: SUPPORT DEVICES: None. HEART / MEDIASTINUM: No significant abnormality. LUNGS / PLEURA: There is mild bibasilar atelectasis. The lungs are otherwise clear. No significant pl eural effusion. No pneumothorax. ADDITIONAL FINDINGS: No significant additional findings. IMPRESSION: Mild bibasilar atelectasis. Signer Name: Roberth Cerna MD Signed: 05/07/2019 12:37 AM Workstation Name: [email or web address]
[2019-05-07 02:06] VITALS: BP 110/57
== END 2019-05-07 02:05 | disposition home or self-care (01) ==
LOC: ED 23:29
DX: T78.40XA Allergy, unspecified, initial encounter (principal); J45.901 Unspecified asthma with (acute) exacerbation; I10 Essential (primary) hypertension; M19.90 Unspecified osteoarthritis, unspecified site; F32.9 Major depressive disorder, single episode, unspecified; F41.9 Anxiety disorder, unspecified; Z90.89 Acquired absence of other organs; Z79.899 Other long term (current) drug therapy; Z88.0 Allergy status to penicillin; Z88.1 Allergy status to other antibiotic agents; Y92.89 Other specified places as the place of occurrence of the external cause
CPT/HCPCS: 71045; 96374; 96375; 99284; J1200; J2930

== ENCOUNTER 2020-06-24 08:23 | Outpatient (CLI) | payer MEDICAID ==
--- NOTE | 2020-06-24 10:04 | Ultrasound Report ---
EXAMINATION: Bilateral Complete Breast Ultrasound, 06/24/2020 INDICATION: ABNORMAL MAMMOGRAM COMPARISON: Prior mammogram 04/20/2020 and right breast ultrasound 05/05/2020 FINDINGS: Complete sonographic evlauation of all 4 quadrants and retroareolar region was performed. Right breast: There is a probable complicated cluster of cysts in the right breast 1:00 position loca tanner 3 cm from the nipple measuring up to 10 x 8 x 7 mm. Otherwise, complete ultrasound of the right b reast reveals multiple benign simple cysts, the largest in the 2:30 position located 9 cm from the ni pple measuring up to 2.2 x 1.1 x 1.7 cm. Left breast: Complete ultrasound of the left breast reveals a 8 mm benign simple cyst in the 2:00 pos ition located 10 cm from the nipple, and a 3 mm benign intramammary lymph node in the 11:00 position located 10 cm from the nipple. No suspicious solid lesion identified. IMPRESSION: 1. Probable complicated cluster of cysts in the right breast 1:00 position located 3 cm from the nipp le. Recommend right breast ultrasound in 6 months to ensure stability. 2. Multiple benign simple cysts seen throughout both breasts. Follow up recommendation: Short term follow up in 6 months. BI-RADS Category 3: Probably Benign. Followup in 6 months. Signer Name: Meri Gilmore MD Signed: 06/24/2020 9:59 AM Workstation Name: [id number]
== END 2020-06-24 08:24 | disposition home or self-care (01) ==
LOC: SPVWC 08:23
PROVIDERS: ATTEND Surgery
DX: N60.01 Solitary cyst of right breast (principal); N60.02 Solitary cyst of left breast

== ENCOUNTER 2021-04-23 08:37 | Outpatient (CLI) | payer MEDICAID ==
--- NOTE | 2021-04-23 11:24 | Mammography Report ---
DIGITAL SCREENING MAMMOGRAM WITH CAD, 04/23/2021 CLINICAL INFORMATION / INDICATION: Routine screening mammography. TECHNIQUE: Digital bilateral 2D mammography was obtained in the craniocaudal and mediolateral obliqu e projections. This examination was interpreted with the benefit of Computer-Aided Detection analysis . COMPARISON: 04/20/2020, 08/29/2018 FINDINGS: Breast Density: The breasts are heterogeneously dense, which may obscure small masses. No dominant mass, suspicious calcifications, or architectural distortion in either breast. Stable benign nodule is noted in the retroareolar right breast, posterior depth. Overall, no interval change. IMPRESSION: No mammographic evidence of malignancy. Follow up recommendation: Routine yearly BI-RADS Category 2: Benign. A "normal" or negative report should not discourage follow up or biopsy of a clinically significant f inding. A written summary of these findings will be mailed to the patient. The patient will be entered into a mammography reporting system which will generate a reminder letter for the patient's next appointmen t at the appropriate interval. The [employer] recommends yearly mammograms starting at age 40 and continuing as l flex as a woman is in good health. Breast MRI is recommended for women with an approximate 20-25% or greater lifetime risk of breast cancer, including women with a strong family history of breast or ova lito cancer or who have been treated for Hodgkin's disease. Signer Name: Violetta De Leon MD Signed: 04/23/2021 11:19 AM Workstation Name: [employer]
== END 2021-04-23 08:38 | disposition home or self-care (01) ==
LOC: SPVWC 08:37
PROVIDERS: ATTEND Surgery
DX: Z12.31 Encounter for screening mammogram for malignant neoplasm of breast (principal); N63.10 Unspecified lump in the right breast, unspecified quadrant
CPT/HCPCS: 77067

== ENCOUNTER 2022-06-14 14:18 | Outpatient (CLI) | payer MEDICAID ==
--- NOTE | 2022-06-16 14:15 | Mammography Report ---
DIGITAL SCREENING MAMMOGRAM WITH CAD, 06/14/2022 CLINICAL INFORMATION / INDICATION: Routine screening mammography. TECHNIQUE: Digital bilateral 2D mammography was obtained in the craniocaudal and mediolateral obliqu e projections. This examination was interpreted with the benefit of Computer-Aided Detection analysis . COMPARISON: 04/23/2021, 04/20/2020 FINDINGS: Breast Density: The breasts are heterogeneously dense, which may obscure small masses. No dominant mass, suspicious calcifications, or architectural distortion in either breast. Stable gaetano ign nodule right breast. No interval change. IMPRESSION: No mammographic evidence of malignancy. Follow up recommendation: Routine yearly screening mammogram. BI-RADS Category 2: BENIGN. A "normal" or negative report should not discourage follow up or biopsy of a clinically significant f inding. A written summary of these findings will be mailed to the patient. The patient will be entered into a mammography reporting system which will generate a reminder letter for the patient's next appointmen t at the appropriate interval. The [employer] recommends yearly mammograms starting at age 40 and continuing as l flex as a woman is in good health. Breast MRI is recommended for women with an approximate 20-25% or greater lifetime risk of breast cancer, including women with a strong family history of breast or ova lito cancer or who have been treated for Hodgkin's disease. Signer Name: Violetta De Leon MD Signed: 06/16/2022 2:11 PM Workstation Name: [email or web address]
== END 2022-06-14 14:19 | disposition home or self-care (01) ==
LOC: SPVWC 14:18
PROVIDERS: ATTEND Surgery
DX: Z12.31 Encounter for screening mammogram for malignant neoplasm of breast (principal)
CPT/HCPCS: 77067